=== PATIENT | female | born 1985 | race Caucasian/White ===

== ENCOUNTER 2017-01-13 15:23 | Emergency (ER) | payer OTHER ==
[2017-01-13] MEDS ORDERED: methylPREDNISolone SOD SUCC 125 MG/2 ML VIAL IVP ONE (15:29)
[2017-01-13] MEDS ORDERED: NS 1,000 ML IV ONE (15:29)
[2017-01-13] MEDS ORDERED: RANITIDINE 50 MG/2 ML VIAL IVP ONE (15:29)
--- NOTE | 2017-01-13 15:32 | EDPHY ---
H & P Time Seen by Provider: 01/13/17 15:29 HPI/ROS: CHIEF COMPLAINT: Allergic reaction HISTORY OF PRESENT ILLNESS: The patient is a 31-year-old female with a history of be allergies who comes to the emergency department complaining of a bee sting in her mouth. She was stung on the left buccal mucosa while she was eating about 2 hours ago. About an hour ago she began to notice swelling in her uvula and left side of her tongue. No difficulty breathing. No history of asthma. Her previous allergic reactions of all manifest in urticaria. She took 50 mg of Benadryl 2 hours ago. She called [facility] who told her to come to the emergency department. REVIEW OF SYSTEMS: Constitutional: denies: chills, fever, recent illness, recent injury EENTM: See HPI Respiratory: denies: cough, shortness of breath Cardiac: denies: chest pain, irregular heart rate, lightheadedness, palpitations Gastrointestinal/Abdominal: denies: abdominal pain, diarrhea, nausea, vomiting, blood streaked stools Genitourinary: denies: dysuria, frequency, hematuria, pain Musculoskeletal: denies: joint pain, muscle pain Skin: denies: lesions, rash, jaundice, bruising Neurological: denies: headache, numbness, paresthesia, tingling, dizziness, weakness Hematologic/Lymphatic: denies: blood clots, easy bleeding, easy bruising Immunologic/allergic: denies: HIV/AIDS, transplant EXAM: GENERAL: Well-appearing, well-nourished and in no acute distress. HEAD: Atraumatic, normocephalic. EYES: Pupils equal round and reactive to light, extraocular movements intact, sclera anicteric, conjunctiva are normal. ENT: The patient has edema to the left aspect of her tongue as well as the left aspect of her uvula. No lip swelling. NECK: Normal range of motion, supple without lymphadenopathy or JVD. LUNGS: Breath sounds clear to auscultation bilaterally and equal. No wheezes rales or rhonchi. HEART: Regular rate and rhythm without murmurs, rubs or gallops. ABDOMEN: Soft, nontender, normoactive bowel sounds. No guarding, no rebound. No masses appreciated. BACK: No CVA tenderness, no spinal tenderness, step-offs or deformities EXTREMITIES: Normal range of motion, no pitting or edema. No clubbing or cyanosis. NEUROLOGICAL: Cranial nerves II through XII grossly intact. Normal speech, normal gait. 5/5 strength, normal movement in all extremities, normal sensation PSYCH: Normal mood, normal affect. SKIN: Warm, dry, normal turgor, no visible rashes or lesions. Source: Patient Exam Limitations: No limitations - Medical/Surgical History Hx Asthma: No Hx Chronic Respiratory Disease: No Hx Diabetes: No Hx Cardiac Disease: No Hx Renal Disease: No Hx Cirrhosis: No Hx Alcoholism: No - Family History Significant Family History: No pertinent family hx - Social History Alcohol Use: Sober Drug Use: None Constitutional: Initial Vital Signs Heart Rate 76 01/13/17 15:35 Respiratory Rate 20 01/13/17 15:35 Blood Pressure 106/61 01/13/17 15:35 O2 Sat (%) 94 01/13/17 15:35 O2 Delivery Mode Room Air Allergies/Adverse Reactions: bee venom protein (honey bee) Allergy (Verified 01/13/17 15:35) Home Medications: Medication Instructions Recorded EPINEPHRINE [EPIPEN] 0.3 mg IM ONCE #2 syr 01/13/17 Famotidine [Pepcid 20 MG (OTC)] 20 mg PO BID #10 tab 01/13/17 diphenhydrAMINE [Benadryl 50 MG 50 mg PO Q4-6PRN PRN #30 cap 01/13/17 (OTC)] predniSONE 60 mg PO DAILY #9 tab 01/13/17 Medical Decision Making ED Course/Re-evaluation: The patient is slightly hypotensive however she is very athletic and I suspect that this is close to her baseline. She shows no systemic symptoms only localized to with a bee sting was however this is very near her airway and will observe closely. She has been given epinephrine and the allergy medicine. 3:45 p.m. the patient's symptoms are improving. Her tongue is less swollen. 4:45 p.m. the patient states that she is doing much better. Her tongue is less swollen. She is tolerating p.o.. We will continue to observe. 6:05 p.m. the patient feels completely better. No respiratory distress. I will have her continue taking the allergy medication regiment and will give her another prescription for EpiPen. Differential Diagnosis: Partial list of the Differential diagnosis considered include but were not limited to; allergic reaction, insect sting, anaphylaxis and although unlikely based on the history and physical exam, I also considered infection, foreign body, trauma. I discussed these differential diagnoses and the plan with the patient as well as the usual and expected course. The patient understands that the diagnosis is provisional and that in medicine we are not always correct and that further workup is often warranted. Usual and customary warnings were given. All of the patient's questions were answered. The patient was instructed to return to the emergency department should the symptoms at all worsen or return, otherwise to followup with the physician as we discussed. - Data Points Medications Given: Discontinued Medications Al Hydroxide/Mg Hydroxide (Maalox Susp) 30 ml PO ONCE ONE Stop: 01/13/17 18:19 Last Admin: 01/13/17 18:25 Dose: 30 ml Diphenhydramine HCl (Benadryl Injection) 50 mg IVP EDNOW ONE Stop: 01/13/17 15:30 Last Admin: 01/13/17 15:37 Dose: 50 mg Epinephrine HCl (Epinephrine) 0.3 mg IM EDNOW ONE Stop: 01/13/17 15:30 Last Admin: 01/13/17 15:37 Dose: 0.3 mg Hyoscyamine Sulfate (Levsin, Hyomax-Sl) 0.25 mg PO ONCE ONE Stop: 01/13/17 18:19 Last Admin: 01/13/17 18:24 Dose: 0.25 mg Sodium Chloride (Ns) 1,000 mls @ 0 mls/hr IV ONCE ONE; Wide Open PRN Reason: Protocol Stop: 01/13/17 15:30 Last Admin: 01/13/17 15:38 Dose: 1,000 mls Lidocaine (Lidocaine 2% Viscous) 15 ml PO ONCE ONE Stop: 01/13/17 18:19 Last Admin: 01/13/17 18:24 Dose: 15 ml Methylprednisolone Sodium Succinate (Solu-Medrol) 125 mg IVP EDNOW ONE Stop: 01/13/17 15:30 Last Admin: 01/13/17 15:37 Dose: 125 mg Ranitidine HCl (Zantac) 50 mg IVP EDNOW ONE Stop: 01/13/17 15:30 Last Admin: 01/13/17 15:42 Dose: 50 mg Departure - Departure Disposition: Home, Routine, Self-Care Clinical Impression: Acute anaphylaxis Qualifiers: Encounter type: initial encounter Qualified Code(s): T78.2XXA - Anaphylactic shock, unspecified, initial encounter Bee sting reaction Qualifiers: Encounter type: initial encounter Injury intent: accidental or unintentional Qualified Code(s): T63.441A - Toxic effect of venom of bees, accidental ( unintentional), initial encounter Condition: Fair Instructions: Anaphylaxis (ED) Referrals: NONE *PRIMARY CARE P,. [Primary Care Provider] - As per Instructions Kaila Galvan MD [Medical Doctor] - As per Instructions Prescriptions: diphenhydrAMINE [Benadryl 50 MG (OTC)] 50 mg PO Q4-6PRN PRN #30 cap PRN Reason: Itching EPINEPHRINE [EPIPEN] 0.3 mg IM ONCE #2 syr Famotidine [Pepcid 20 MG (OTC)] 20 mg PO BID #10 tab predniSONE 60 mg PO DAILY #9 tab
[2017-01-13 17:47] VITALS: BP 112/67; PULSE 68; RESP 16; TEMP 98.4; O2SAT 95
[2017-01-13] MEDS ORDERED: HYOSCYAMINE SULFATE 0.125 MG TAB PO ONE (18:18)
[2017-01-13] MEDS ORDERED: MAG HYDROX/AL HYDROX/SIMETH 30 ML UDCUP PO ONE (18:18)
[2017-01-13] MEDS ORDERED: LIDOCAINE 2% VISCOUS 15 ML UDCUP PO ONE (18:18)
[2017-01-13] MEDS ORDERED: methylPREDNISolone SOD SUCC 125 MG/2 ML VIAL ONE (23:59)
[2017-01-13] MEDS ORDERED: RANITIDINE 50 MG/2 ML VIAL ONE (23:59)
== END 2017-01-13 18:27 | disposition home or self-care (01) ==
DX: T63.441A Toxic effect of venom of bees, accidental (unintentional), initial encounter (principal); E86.9 Volume depletion, unspecified
CPT/HCPCS: 96374; J0171; J1200; J2780